=== PATIENT | male | born 1985 | race Hispanic/Latino ===

== ENCOUNTER 2020-04-25 15:42 | Emergency (ER) | payer BC ==
[~2020-04-25 15:42] MED LIST: TETANUS/DIPHTHERIA TOXOID [ADULT] 0.5 ML VIAL IM ONE
[2020-04-25] MEDS ORDERED: BUPIVACAINE/PF 0.5% 30ML VIAL ONE (16:09)
[2020-04-25] MEDS ORDERED: LIDOCAINE HCL 2% 20ML ONE (16:10)
[2020-04-25] MEDS ORDERED: CEFAZOLIN SODIUM 1 GM VIAL ONE (16:10)
[2020-04-25] MEDS ORDERED: IBUPROFEN 600 MG TABLET ONE (17:41)
== END 2020-04-25 17:54 | disposition home or self-care (01) ==
LOC: EDH 15:42
DX: S91.212A Laceration without foreign body of left great toe with damage to nail, initial encounter (principal); W27.0XXA Contact with workbench tool, initial encounter; Y93.89 Activity, other specified; Y92.89 Other specified places as the place of occurrence of the external cause; Y99.8 Other external cause status
CPT/HCPCS: 12042; 73660; 90471; 90714; 96372; 99284; J0690; J3490 ×2

== ENCOUNTER 2021-07-30 19:39 | Emergency (ER) | payer BC ==
[~2021-07-30] VITALS: Ht 170.2 cm; Wt 102.1 kg
[2021-07-30 19:41] VITALS: BP 155/78
[2021-07-30 20:23] LABS: BASOPHILS % (AUTO) 0.5 % (0.0-5.0); EOSINOPHILS % (AUTO) 2.3 % (0.0-8.0); HEMATOCRIT 43.9 % (42-54); MEAN CORPUSCULAR HEMOGLOBIN 30.2 pg (27.0-33.0); MEAN CORPUSCULAR HGB CONC 34.9 g/dL (32.0-36.0); MEAN CORPUSCULAR VOLUME 86.8 fL (79-99); MONOCYTES % (AUTO) 9.4 % (3.0-13.0); NEUTROPHILS % (AUTO) 61.1 % (40.0-77.0); PLATELET COUNT (AUTO) 258 K/uL (130-400); RED BLOOD CELL COUNT(AUTO) 5.06 MIL/uL (4.50-6.20); RED CELL DISTRIBUTION WIDTH 11.8 % (11.0-15.5); WHITE BLOOD COUNT (AUTO) 8.4 K/uL (4.8-10.8)
[2021-07-30] MEDS: LORAZEPAM 1 MG TABLET PO ONE (20:33)
[2021-07-30 20:41] LABS: ALBUMIN 3.8 g/dL (3.5-5.0); BILIRUBIN,TOTAL 0.4 mg/dL (0.2-1.0); POTASSIUM 3.6 mmol/L (3.5-5.1); TOTAL PROTEIN, SERUM 7.3 g/dL (6.0-8.3)
[2021-07-30] MEDS ORDERED: FAMO-136 PO (21:15)
== END 2021-07-30 21:40 | disposition home or self-care (01) ==
LOC: EDH 19:39
DX: K21.9 Gastro-esophageal reflux disease without esophagitis (principal); R00.2 Palpitations; F41.9 Anxiety disorder, unspecified; E66.9 Obesity, unspecified; Z68.35 Body mass index [BMI] 35.0-35.9, adult
CPT/HCPCS: 36415; 71045; 80053; 84484; 85025; 93005